=== PATIENT | male | born 1985 | race Caucasian/White ===

== ENCOUNTER 2016-05-09 00:13 | Emergency (ER) | payer SELFPAY ==
[~2016-05-09] VITALS: Ht 172.7 cm; Wt 65.3 kg
--- NOTE | 2016-05-09 00:40 | NUR ---
BB RA; 3 SEIZURE TODAY, HX BRAIN CA. PT AOX3 RR EVEN AND UNLABORED. PT ABLE TO AMBULATOTE TO ER BED 5 WITH STEADY GAIT. NO SOB NOTED. NAD NOTED. NO NVD AT THIS TIME. PT NOT DIAPHORETIC. PT GOWNED AND PLACED ON MONITOR WAITING FOR MD ORDONEZ. PT PLACED ON SEIZURE PRECAUTION.
--- NOTE | 2016-05-09 00:50 | NUR ---
PT WENT TO CT. PT REFUSED CT SCAN AT THIS TIME.
--- NOTE | 2016-05-09 01:25 | NUR ---
DR. BAILEY AT BEDSIDE FOR EVAL.
[2016-05-09 01:30] LABS: CALCIUM, SERUM 8.4 mg/dL (8.5-10.1); CREATININE 0.9 mg/dL (0.6-1.3); POTASSIUM 3.6 mmol/L (3.5-5.1)
--- NOTE | 2016-05-09 01:50 | NUR ---
PT TO CT.
--- NOTE | 2016-05-09 02:02 | NUR ---
PT RETURNED FROM CT.
--- NOTE | 2016-05-09 02:51 | NUR ---
PT REFUSED VS CHECK. RISK AND BENEFITS EXPLAINED X3. PT STRONGLY REFUSED.
[2016-05-09 03:11] LABS: BASOPHILS % (AUTO) 0.8 % (0.0-2.0); EOSINOPHILS # (AUTO) 0.2 /CMM (0.0-0.7); EOSINOPHILS % (AUTO) 4.3 % (0.0-6.0); HEMATOCRIT 36 % (39-51); HEMOGLOBIN 11.9 g/dL (13.5-17.5); LYMPHOCYTES # (AUTO) 1.8 /CMM (0.8-4.8); LYMPHOCYTES % (AUTO) 31.8 % (20.0-44.0); MEAN CORPUSCULAR HEMOGLOBIN 26 PG (26.0-33.0); MEAN CORPUSCULAR HGB CONC 33 g/dl (31.0-36.0); MEAN CORPUSCULAR VOLUME 79 fL (80-96); MONOCYTES # (AUTO) 0.7 /CMM (0.1-1.30); MONOCYTES % (AUTO) 11.9 % (2.0-12.0); NEUTROPHILS # (AUTO) 2.9 /CMM (1.8-8.9); NEUTROPHILS % (AUTO) 51.2 % (43.0-81.0); PLATELET COUNT (AUTO) 280 /CMM (150-450); RDW COEFFICIENT OF VARIATION 15.2 (11.5-15.0); WHITE BLOOD COUNT (AUTO) 5.6 K/uL (4.3-11.0)
--- NOTE | 2016-05-09 03:41 | NUR ---
IV removed. Catheter intact and site benign. Pressure and 4x4 applied to site. No bleeding noted. Patient discharged to home in stable condition. Written and verbal after care instructions given. Patient refused to sign papers. instructed pt not to drive. ambulatory with a steady gait
[2016-05-09 03:42] VITALS: BP 128/78
== END 2016-05-09 03:43 | disposition home or self-care (01) ==
LOC: ER 00:14
DX: R56.9 Unspecified convulsions (principal); T50.995A Adverse effect of other drugs, medicaments and biological substances, initial encounter; Y92.9 Unspecified place or not applicable; C71.9 Malignant neoplasm of brain, unspecified
CPT/HCPCS: 36415; 70450; 71010; 80048; 85025; 99285; A4606; Z7610